=== PATIENT | male | born 1955 | race Caucasian/White ===

== ENCOUNTER 2022-08-02 10:01 | Outpatient (CLI) | payer BC | END 2022-08-02 10:02 | disposition home or self-care (01) | LOC: CSHCT 10:01 | PROVIDERS: ATTEND Family Medicine | DX: R31.9 Hematuria, unspecified (principal); N20.0 Calculus of kidney; K57.90 Diverticulosis of intestine, part unspecified, without perforation or abscess without bleeding | CPT/HCPCS: 74176 ==

== ENCOUNTER 2025-03-22 07:47 | Outpatient (CLI) | payer BC | END 2025-03-22 07:48 | disposition home or self-care (01) | LOC: CSHULT 07:47 | PROVIDERS: ATTEND Family Medicine | DX: N18.31 Chronic kidney disease, stage 3a (principal); N28.1 Cyst of kidney, acquired | CPT/HCPCS: 76770 ==